=== PATIENT | female | born 1985 | race Two or more races ===

== ENCOUNTER 2019-05-12 12:11 | Emergency (ER) | payer SELFPAY ==
[~2019-05-12] VITALS: Ht 157.5 cm; Wt 76.7 kg
[2019-05-12] MEDS ORDERED: ALBUTEROL SULF 2.5 MG/0.5ML(0.5%) NEB SOLN NEB ONE (16:15)
[2019-05-12] MEDS ORDERED: IPRATROPIUM BROM 0.5 MG/2.5ML INH SOL NEB ONE (16:15)
[2019-05-12] MEDS ORDERED: methylPREDNISolone SOD SUCC 125 MG/2 ML VL IM ONE (16:15)
[2019-05-12 16:33] VITALS: BP 129/76
== END 2019-05-12 16:42 | disposition home or self-care (01) ==
LOC: ER 12:21
DX: J20.9 Acute bronchitis, unspecified (principal)
CPT/HCPCS: 71046; 96372; 99283; J2930

== ENCOUNTER 2020-04-18 01:32 | Emergency (ER) | payer MEDICAID ==
[~2020-04-18] VITALS: Ht 157.5 cm; Wt 79.4 kg
[2020-04-18] MEDS ORDERED: ACETAMINOPHEN 500 MG TAB PO ONE (05:15)
[2020-04-18 08:05] VITALS: BP 101/70
== END 2020-04-18 09:39 | disposition home or self-care (01) ==
LOC: ER 01:37
DX: U07.1 COVID-19 (principal)
CPT/HCPCS: 36415; 71045; 87426

== ENCOUNTER 2024-07-10 03:42 | Emergency (ER) | payer MEDICAID ==
[~2024-07-10] VITALS: Ht 157.5 cm; Wt 86.3 kg
[~2024-07-10 03:42] MED LIST: CIPR-173 PO; LOPE2CAP16 PO
[2024-07-10 03:51] VITALS: BP 131/86; PULSE 107; RESP 18; TEMP 98.8; O2SAT 97
--- NOTE | 2024-07-10 04:12 | ED.PDOC ---
SOB-HPI HPI Comments This is a 38-year-old female presents to the ED with a chief complaint of cough. Pt C/O non-productive cough x 3 weeks. Pt states [employer] she coughed up clear sputum with streaks of bright red blood in it, Denies difficulty breathing, shortness of breath, chest pain, nausea, vomiting, recent ill contacts or recent travel. Chief Complaint: Cough Time Seen by MD: 03:55 Primary Care Provider: ROBERT Reviewed notes: Nurses Notes, Medications, Allergies Information Source: Patient Mode of Arrival: Ambulatory Past Medical History PAST MEDICAL HISTORY: Anxiety Surgical History: Denies all surgeries PRODUCT MGR History: No Pertinent PRODUCT MGR History Family History Family History: Unknown Social History Smoker: Non-Smoker Alcohol: Denies ETOH Use Drugs: Denies Drug Use Lives In: Home Constitutional: denies: chills, diaphoresis, fatigue, fever, malaise, sweats, weakness, others EENTM: denies: blurred vision, double vision, ear bleeding, ear discharge, ear drainage, ear pain, ear ringing, eye pain, eye redness, hearing loss, mouth pain, mouth swelling, nasal discharge, nose bleeding, nose congestion, nose pain, photophobia, tearing, throat pain, throat swelling, voice changes, others Respiratory: reports: cough, hemoptysis; denies: orthopnea, SOB at rest, shortness of breath, SOB with excertion, stridor, wheezing, others Cardiovascular: denies: chest pain, dizzy spells, diaphoresis, Dyspnea on exertion, edema, irregular heart beat, left arm pain, lightheadedness, palpitations, PND, syncope, others Gastrointestinal: denies: abdomen distended, abdominal pain, blood streaked bowels, constipated, diarrhea, dysphagia, difficulty swallowing, hematemesis, melena, nausea, poor appetite, poor fluid intake, rectal bleeding, rectal pain, vomiting, others Genitourinary: denies: abnormal vagina bleeding, burning, dyspareunia, dysuria, flank pain, frequency, hematuria, incontinence, pain, , vagina discharge, urgency, others Neurological: denies: dizziness, fainting, headache, left sided numbness, left sided weakness, numbness, paresthesia, pre-existing deficit, right sided numbness, right sided weakness, seizure, speech problems, tingling, tremors, weakness, others Musculoskeletal: denies: back pain, gout, joint pain, joint swelling, muscle pain, muscle stiffness, neck pain, others Integumetry: denies: bruises, change in color, change in hair/nails, dryness, laceration, lesions, lumps, rash, wounds, others Allergic/Immunocompromised: denies: Difficulty Healing, Frequent Infections, Hives, Itching, others Hematologic/Lymphatic: denies: anemia, blood clots, easy bleeding, easy bruising, swollen glands, others Endocrine: denies: excessive hunger, excessive sweating, excessive thirst, excessive urination, flushing, intolerance to cold, intolerance to heat, unexplained weight gain, unexplained weight loss, others Psychiatric: denies: anxiety, bipolar disorder, depression, hopeless, panic disorder, schizophrenia, sleepless, suicidal, others Physical Exam General Appearance: No Apparent Distress, Normal HEENT: Normal ENT Inspection, Pharynx Normal, TMs Normal Neck: Full Range of Motion, Non-Tender Respiratory: Lungs Clear, No Accessory Muscle Use, No Respiratory Distress, Normal Breath Sounds Cardiovascular: No Murmur, Normal Peripheral Pulses, Regular Rate/Rhythm Breast Exam: Deferred Gastrointestinal: Non Tender, Soft Genitalia: Deferred Pelvic: Deferred Rectal: Deferred Extremities: No calf tenderness, Normal capillary refill, Normal inspection, Normal range of motion, Non-tender, No pedal edema Musculoskeletal : Apperance: Normal 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 Was a procedure done?: No Differential Dx Differential Diagnosis: Asthma, Bronchitis, Pneumonia, Allergic Rhinitis, URI X-Ray, Labs, Meds, VS Vital Signs Date Time Temp Pulse Resp B/P (MAP) Pulse Ox O2 Delivery O2 Flow Rate FiO2 07/10/24 03:51 18 97 Room Air* 0 21 07/10/24 03:51 98.8 107 18 131/86 (101) 97 X-Ray, Labs, Meds, VS Comment Chest x-ray shows no acute cardiopulmonary findings. Bronchitis secondary to URI. Trial azithromycin, albuterol inhaler, and Medrol Dosepak script to pharmacy. Advised to rest increase p.o. fluids with electrolytes. Follow up With your PCP in 1-2 days. Take medications as prescribed side effects discussed. Return precautions given patient indicates understanding agrees with discharge plan of care. Time of 1ST Reevaluation: 05:11 Reevaluation 1ST: Improved Patient Education/Counseling: Diagnosis, Treatment, Prognosis, Need For Follow Up Family Education/Counseling: No Family Present Departure 1 Departure Time of Disposition: 05:09 Impression: Primary Impression: Bronchitis Disposition: HOME / SELF CARE / HOMELESS Condition: Stable e-Prescriptions Albuterol Sulfate (Albuterol Sulfate Hfa) 108 Mcg/Act Aer 108 MCG IN QID PRN for 14 Days, #1 INHALER Inhale 1-2 puffs every 4-6 hours as needed for wheezing or shortness of breath Prov: ZARIA WESLEY 07/10/24 Methylprednisolone (Medrol Dosepak) 4 Mg Jorge 4 MG PO UD for 6 Days, #21 TAB UAD Prov: ZARIA WESLEY 07/10/24 Azithromycin (Azithromycin) 250 Mg Tab 250 MG PO DAILY MDD 500 for 5 Days, #6 TAB 0 Refills 2 TABLETS ORALLY ON DAY ONE, THEN 1 TABLET ORALLY DAILY FOR 4 DAYS Prov: ZARIA WESLEY 07/10/24 Discharged With: Self Critical Care Note Critical Care Time?: No Stability Stability form required: No Heart Score Heart Score: Heart Score Response (Comments) Value History N/A 0 EKG N/A 0 Age <45 0 Risk Factors N/A 0 Troponin N/A 0 Total 0 ZAIRA WESLEY Jul 10, 2024 04:11
--- NOTE | 2024-07-10 04:49 | DVH ---
CHEST RADIOGRAPH Indication: cough x 3 weeks Technique: 2 views of the chest were obtained Comparison: None IMPRESSION: Heart appears normal in size. The lungs appear clear without focal airspace opacity, effusion, or pn eumothorax
[2024-07-10] MEDS ORDERED: AZIT-43 PO (05:11)
[2024-07-10] MEDS ORDERED: METH4PAK PO (05:11)
[2024-07-10] MEDS ORDERED: ALBU108A5 IN (05:11)
== END 2024-07-10 05:23 | disposition home or self-care (01) ==
LOC: ER 03:42
DX: J40 Bronchitis, not specified as acute or chronic (principal)
CPT/HCPCS: 71046